=== PATIENT | male | born 1935 | race Caucasian/White ===

== ENCOUNTER 2019-02-17 10:26 | Inpatient (IN) | payer MEDICARE ==
--- NOTE | 2019-02-17 11:48 | PDOC.HHP ---
Hospitalist HPI - History of Present Illness Chest pain History of Present Illness: Mr. Plaza is 84 y/o male with h/o hypertension who initially presented to [place] [facility] with c/o chest pain on 02/11/2019. He was diagnosed with community acquired pnemonia based on clinical findings and imaging. Patient was discharged form the ER with azithromycin and cefpodoxime. He presented back today to the ER from anterior chest pain which he insists to be different from previous chest pain that he experienced. Pain is associated with non productive cough and chills. Pain is non radiating and pleuritic. Patient seems to be agitated and not providing much answers. He endorses being short of breath; however, relates it to "being stuck in one place" He denies syncope, orthopnea or PND. ED Course: In the ER, he was found to have persistent infiltrates and was in Afib, denies any prior history. Patient has been referred for inpatient admission given failed outpatient therapy Hospitalist ROS - Review of Systems Constitutional: reports: chills Eyes: denies: pain, vision change, conjunctivae inflammation, eyelid inflammation, redness, other ENT: denies: ear pain, ear discharge, nose pain, nose discharge, nose congestion , mouth pain, mouth swelling, throat pain, throat swelling, other Respiratory: reports: cough, dry, shortness of breath, SOB with excertion, pleuritic pain Cardiovascular: reports: chest pain. denies: palpitations, orthopnea, paroxysmal noc. dyspnea, edema, light headedness, other Genitourinary: denies: dysuria, frequency, incontinence, hematuria, retention, other Musculoskeletal: denies: neck pain, shoulder pain, arm pain, back pain, hand pain, leg pain, foot pain, other Skin: denies: rash, lesions, david, bruising, other Neurological: denies: weakness, numbness, incoordination, change in speech, confusion, seizures, other All other systems reviewed; all pertinent +/- noted in HPI/Subj Hospitalist History - Past Medical History Source: patient, old records Cardiac: reports: HTN Pulmonary: denies: no pertinent history, angina, asthma, bronchitis, CVA/TIA/ stroke, congestive heart failure, COPD, deep vein thrombosis, emphysema, heart attack, high cholesterol, HIV/AIDS, hypertension, lung disease, pneumonia, previously intubated, pulmonary embolism, Other SALES TRAINING REPRESENTATIVE: denies: no pertinent history, Carpal Tunnel Syndrome, CVA, Dementia, Migraine, Peripheral neuropathy, Seizure, TIA, Vertigo, Other Gastrointestinal: denies: no pertinent history, Constipation, Diverticulosis, GERD, GI bleed, Gastritis, Hemorrhoids, Inflam bowel disease, Irritable bowel disease, Peptic ulcer disease, Other Heme/Onc: denies: no pertinent history, Anemia NOS, B12 deficiency, Cancer, Hemochromatosis, Iron deficiency anemia, Sickle cell disease, Sickle cell trait , Other Hepatobiliary: denies: no pertinent history, Cirrhosis, Cholelithiasis, Hep A/B/ C, Other Musculoskeletal: reports: Osteoarthritis Rheumatologic: denies: no pertinent history, Fibromyalgia, Gout, Rheumatoid arthritis, Vasculitis, Other Infectious Disease: denies: no pertinent history, Bacterial vaginosis, [place], Gonorrhea, HIV, Human papilloma virus, Herpes simplex 1, Herpes simplex 2, Herpes zoster, Other - Past Surgical History Past Surgical History: reports: Total Knee Replacement Other Surgical History: Colon resection with colostomy, now reversed - Family History Family History: reports: hypertension - Exam General Appearance: NAD, awake alert Eye: PERRL, anicteric sclera ENT: dry oral mucosa Neck: supple, symmetric Heart: irregular, murmur present (3/), III/IV Respiratory: no wheezes, rales Gastrointestinal: soft, non-tender Extremities: no cyanosis, no clubbing Skin: normal turgor Neurological: normal sensation to touch, no focal deficits Musculoskeletal: generalized weakness Psychiatric: normal affect, oriented to place, oriented to time Hospitalist Results - Labs Lab results: Laboratory Tests 01/20/19 02/17/19 02/17/19 18:30 08:40 08:45 WBC 14.3 H RBC 4.43 L Hgb 13.4 L MCHC 31.3 L MPV 6.8 L Neutrophils % 76.8 H Lymphocytes % 14.9 L Neutrophils # 11.0 H Sodium 139 Potassium 5.1 BUN 35 H Creatinine 1.65 H Calcium 13.2 H* Alkaline Phosphatase 157 H Globulin 3.8 H Albumin/Globulin Ratio 0.9 L Urine Clarity Turbid A Urine Nitrite 2+ A Urine Urobilinogen Normal Urine WBC Greater than 50 A Urine Bacteria 4+ A - Radiology Interpretation Chest x-ray Status: report reviewed by nv Hospitalist H&P A/P - Plan Plan: Mr. Plaza is 84y/o male pw Chest pain # Chest pain- rule out ACS. Trop elevated at 0.036, will trend. EKG with rate controlled Afib. Risk factors noted. -Aspirin -check lipids -Echocardiography and place on telemetry -Consult transit worker. #Atrial fibrillation- denies prior history. maybe related to acute infection. -Rate is controlled -[id number] score at 2 thus far; initiate full dose lovenox. Defer further AC to transit worker. -Obtain Echocardiography # Community acquired pneumonia- failed outpatient therapy. leukocytosis remains. Not hypoxic, doubt VTE. - will escalate antibiotics to zosyn and vanc pending MRSA screening - duonebs, supplemental oxygen and pulm toileting - blood cultures, urine strep and legionella - lactic acid is unremarkable. -consider repeating cxr for resolution vs CT chest for further investigation #UTI- UA strongly positive. Denies any symptoms. -abx to cover -follow urine culture #Hypercalcemia- related to hypovolemia? Check Ionized ca - IV hydration. trend ca - recheck labs in a.m #GUERO- cannot rule out CKD. multifactorial. Hypercalcemia vs acute infection vs afib. Urine studies to calc FeNa. - IV hydration - avoid nephrotoxins and trend cr #Hypertension- will resume meds once uploaded to APR. BP at 141/82, HR 68. 96% on RA #Chronic bilateral knee pain- mobilizes with wheel chair, risk of DVT/PE. - resume home pain meds DVT ppx- on full dose lovenox GI ppx famotidine. patient is a DNR/DNI, discussed with patient and spouse at bedside.
[2019-02-17] MEDS ORDERED: Ondansetron PF 4 MG/2 ML Vial IVP PRN (13:53)
[2019-02-17] MEDS ORDERED: Sodium Chloride 0.9% 1,000 ML IV SCH (13:53)
[2019-02-17 14:42] LABS: Troponin I 0.014 ng/mL (< 0.028)
[2019-02-17 16:55] LABS: Legionella Urinary Ag Negative (Negative); Strep pneumo Urine Ag NEGATIVE (NEGATIVE)
--- NOTE | 2019-02-17 18:20 | CON ---
DATE OF CONSULTATION: 02/17/2019 Consult encompassed 50 minutes of time, greater than 50% time spent on direct patient care. HISTORY OF PRESENT ILLNESS: Mr. Plaza is an 84-year-old male, who is currently in inpatient observation for workup of atypical chest pain. Symptoms started about 3 days ago. He was seen over in [place], diagnosed with left upper lobe pneumonia, started on azithromycin and Omnicef. At that time, he was having chest pain mainly on the right side, but the infiltrate was in the left upper lobe. He came back today because of persistent pain, which was now on the left side. He denies any cough, fever, chills, or shortness of breath. PAST MEDICAL HISTORY: 1. Hypertension. 2. Osteoarthritis. PAST SURGICAL HISTORY: Total knee replacement. FAMILY MEDICAL HISTORY: Remarkable for hypertension. MEDICATIONS: Prior to admission, denies taking any medications. SOCIAL HISTORY: Quit smoking about 40 years ago. Does not consume alcohol. REVIEW OF SYSTEMS: Twelve-point review of systems is otherwise negative. PHYSICAL EXAMINATION: VITAL SIGNS: Temperature 98.3, pulse 85, respirations 24, O2 saturation 97% on room air, and blood pressure 149/78. GENERAL: The patient is an elderly male, who is awake, alert, and oriented. He has somewhat disheveled appearance. HEENT: Pupils reactive. Sclerae anicteric. Oropharynx clear. NECK: No adenopathy or JVD. CHEST: Palpable pain along the left lateral rib cage. He has no crackles, but has wheezing in both the left upper and right upper lobes. CARDIAC: S1 and S2 regular with a 2/6 holosystolic murmur at the left sternal border. ABDOMEN: Soft, obese, nontender, and nondistended. EXTREMITIES: No clubbing, cyanosis, or edema. NEUROLOGIC: Grossly intact throughout. LABORATORY DATA: Sodium 139, potassium 5.1, chloride 103, CO2 of 25, BUN 35, creatinine 1.6, glucose 102, calcium 13.2, alkaline phosphatase 157. White blood cell count 14.3, hematocrit 42.9, and platelet count 305. Chest x-ray from [place] does show a left upper lobe infiltrate. ASSESSMENT: 1. Left upper lobe infiltrate. 2. Hypercalcemia. 3. Previous smoker. 4. Left-sided pain. PLAN: Needs a CT of the chest. Unfortunately, his creatinine is elevated. I will go ahead and get noncontrast CT for the time being. He will continue hydration for his hypercalcemia. I have increased his IV fluid rate. He is continued on IV antibiotics. I will check an intact parathyroid hormone level. We will follow. Job ID: [id number]
[2019-02-17] MEDS: Sodium Chloride 0.9% 1,000 ML IV SCH (19:05)
--- NOTE | 2019-02-17 20:10 | CON ---
DATE OF CONSULTATION: HISTORY OF PRESENT ILLNESS: The patient is an 84-year-old gentleman, who presented for evaluation of dyspnea. The patient states he has a long history of an irregular heart rhythm and a heart murmur. The patient was in his usual state of health when he started developing increasing dyspnea. He went to a local emergency room and was diagnosed with pneumonia. He has been on antibiotics. The patient returned to the emergency room with shortness of breath. He was noted to be in irregular heart rhythm and admitted for further evaluation. The patient denies having any chest discomfort. The patient denies having any fevers or chills. PAST MEDICAL HISTORY: 1. BPH. 2. Irregular heart rhythm. 3. Insomnia. PAST SURGICAL HISTORY: He has had knee surgery, prostate surgery, and colostomy. SOCIAL HISTORY: Nonsmoker. ALLERGIES: NO KNOWN DRUG ALLERGIES. MEDICATIONS: On admission was; 1. Lisinopril 20 daily. 2. Ambien 10 at bedtime. 3. Hydroxyzine 25 b.i.d. REVIEW OF SYSTEMS: Ten-point system otherwise unremarkable. No history of easy bruising or bleeding or bright red blood per rectum. PHYSICAL EXAMINATION: GENERAL: Obese gentleman, in no acute distress. VITAL SIGNS: Blood pressure 150/90. NECK: No jugular venous distention. LUNGS: Clear to auscultation. HEART: Irregular rate and rhythm with a 3/6 systolic murmur. ABDOMEN: Nondistended. EXTREMITIES: Showed trace edema. VASCULAR: Radial pulses 2+. LABORATORY RESULTS: Sodium 139, potassium 5.1, chloride 103, bicarbonate 25, BUN 35, creatinine 1.6, and calcium was 13.2. Troponin was 0.036 and BNP 67. White blood cell count 14.3, hemoglobin 13.4, hematocrit 42.9, and platelets 305. EKG revealed atrial fibrillation with a slow ventricular response, left anterior fascicular block. Chest x-ray revealed a right upper lung mass/infiltrate. IMPRESSION: 1. Right upper lung mass/infiltrate. 2. Hypercalcemia. 3. Atrial fibrillation, possibly permanent. 4. Renal insufficiency. 5. Benign prostatic hyperplasia. 6. Aortic stenosis. PLAN: This gentleman presents with a right upper lung mass and hypercalcemia, would consult Pulmonary. The patient has atrial fibrillation, rate is well controlled. The patient will need to be on chronic anticoagulation. We will follow this patient with you through his hospitalization. Job ID: [id number]
[2019-02-17] MEDS ORDERED: Enoxaparin Sodium 100 MG/ML SYRINGE SC SCH (21:00)
--- NOTE | 2019-02-17 21:14 | CT ---
NONCONTRAST CT THORAX: History: Left upper lobe mass versus infiltrate. Reported history of pneumonia. FINDINGS: There is a mass like area of consolidation seen in the left upper lobe. This could be related to a ve ry dense area of consolidation, findings are worrisome for neoplastic process. There is narrowing of the left upper lobe bronchus. There is nodularity seen within the left upper lobe as well as intersti tial thickening. These findings could be related to post obstructive type changes versus lymphangitic spread of tumor. The right lung is clear. Mild emphysematous changes are present which are predominately present in th e right lower lobe. There are enlarged mediastinal lymph nodes with larger paratracheal on the right measuring 1.5 cm in short axis dimension. A subcoronal lymph node is present measuring 1.5 in short axis dimension. A few prevascular space lymph nodes are identified. There is an increased number of lymph nodes seen in the axillary regions bilaterally. Largest lymph n ode in the left axilla measures 1.9 cm with largest lymph node in the right axilla measuring 1.4 cm. Vascular calcifications are seen in the coronary arteries and involving the thoracic aorta. The thyroid gland has a normal nonenhanced CT appearance. The visualized liver demonstrates diminished attenuation relative to the spleen suggesting diffuse fa tty infiltration. Splenic and hepatic granulomata are identified. Multilevel degenerative changes are seen throughout the visualized cervical spine as well as involvin g the thoracic spine. There are calcifications at anterior and longitudinal ligament at multiple leve ls. No suspicious lytic or sclerotic osseous lesions are identified. IMPRESSION: 1. Mass like density within the left upper lobe measuring 5 cm craniocaudal x 7.3 cm AP x 6.3 cm liao sverse. While this could be related to a dense area of consolidation secondary to pneumonia, findings are worrisome for a mass in this region related to neoplastic process. 2. Interstitial thickening with nodularity in the remainder of the left upper lobe which could be rel ated to either post obstructive pneumonitis or lymphangitic spread of tumor. 3. Mediastinal as well as axillary lymphadenopathy. 4. Fatty infiltration of the liver. POS: [facility]
[2019-02-17] MEDS: Enoxaparin Sodium 120 MG/0.8 ML SYRINGE SC SCH (21:15)
[2019-02-17] MEDS: Famotidine 20 MG TAB PO SCH (21:15)
[2019-02-17] MEDS: Piperacillin/Tazobactam 3.375 GM in Sodium Chloride 0.9% 100 ML IVPB SCH (21:15)
[2019-02-17] MEDS ORDERED: HYDROcodone/Acetaminophen 5/325 mg Tablet PO PRN (22:24)
[2019-02-17] MEDS: Zolpidem Tartrate 5 MG TAB PO SCH ×2 (23:48→23:52)
[2019-02-18] MEDS: Piperacillin/Tazobactam 3.375 GM in Sodium Chloride 0.9% 100 ML IVPB SCH ×4 (02:42→20:55)
[2019-02-18 04:54] LABS: #Basophils 0.1 thou/uL (0.0-0.2); #Lymphocytes 1.9 thou/uL (1.20-3.40); #Monocytes 1.2 thou/uL (0.11-0.59); #Neutrophils 9.4 thou/uL (1.40-6.50); %Basophils 0.4 % (0.0-1.0); %Eosinophils 0.1 % (0.0-10.0); %Lymphocytes 15.2 % (21.0-51.0); %Monocytes 9.5 % (0.0-10.0); %Neutrophils 74.8 % (42.0-75.0); Hemoglobin 11.7 g/dL (14.0-18.0); Mean Corpuscular Hemoglobin 31.7 pg (27.0-31.0); Mean Platelet Volume 7.4 fL (7.4-10.4); Platelet Count 244 thou/uL (130-400); RBC Distribution Width 12.2 % (11.5-14.5); Red Blood Cell (RBC) Count 3.69 mill/uL (4.70-6.10); White Blood Cell (WBC) Count 12.6 thou/uL (4.8-10.8)
[2019-02-18 05:17] LABS: ALT (SGPT) 21 U/L (8-55); AST (SGOT) 32 U/L (5-34); Alkaline Phosphatase 144 U/L (40-110); Anion Gap 11 mmol/L (10-20); BUN (Urea Nitrogen) 30 mg/dL (8.4-25.7); Bilirubin, Total 0.8 mg/dL (0.2-1.2); Calc. Creatinine Clearance 52 mL/min (70-130); Calcium 11.4 mg/dL (7.8-10.44); Carbon Dioxide 23 mmol/L (23-31); Cardiac Risk 3.2 (Less than 4.5); Chloride 107 mmol/L (98-107); Cholesterol 95 mg/dl (< 200 Desired); Estimated GFR-MDRD 41; Globulin 3.1 g/dL (2.4-3.5); Glucose 81 mg/dL (83-110); HDL Cholesterol 30 mg/dL (>60 Neg Risk); LDL Cholesterol, Calculated 46 mg/dL; Potassium 4.7 mmol/L (3.5-5.1); Protein, Total 6.1 g/dL (5.8-8.1); Sodium 136 mmol/L (136-145); Triglycerides 94 mg/dL (Less than 150)
[2019-02-18] MEDS: Sodium Chloride 0.9% 1,000 ML IV SCH ×3 (08:40→22:22)
[2019-02-18] MEDS: Aspirin 81 mg Enteric Coated Tablet PO SCH (10:11)
[2019-02-18] MEDS: Enoxaparin Sodium 120 MG/0.8 ML SYRINGE SC SCH ×2 (10:11→20:55)
[2019-02-18] MEDS: Famotidine 20 MG TAB PO SCH ×2 (10:12→20:54)
[2019-02-18] MEDS: Vancomycin 1.5 GRAM/300 ML BAG 1.5 GM in Premix Bag 1 BAG IVPB SCH ×2 (13:15→21:07)
[2019-02-18] MEDS ORDERED: Zoledronic Acid 4 MG in Sodium Chloride 0.9% 100 ML IVPB SCH (13:45)
--- NOTE | 2019-02-18 13:49 | PDOC.HOSPP ---
- Subjective Encounter Date: 02/18/19 Encounter Time: 10:30 Subjective: pt up in bed no complains - Objective Vital Signs & Weight: Vital Signs (12 hours) Temp Pulse Resp BP Pulse Ox 02/18/19 11:25 98.1 F 65 20 136/66 97 02/18/19 08:35 97.5 F L 90 20 156/96 H 95 02/18/19 07:13 98.4 F 76 18 146/68 H 95 02/18/19 02:45 98.4 F 68 22 H 129/60 95 Weight Admit Weight 237 lb 6.4 oz Weight 240 lb 1.334 oz I&O: 02/17/19 02/18/19 02/19/19 06:59 06:59 06:59 Intake Total 1064 Output Total 475 Balance 589 Result Diagrams: 02/18/19 04:28 02/18/19 04:28 Hospitalist ROS - Review of Systems Respiratory: denies: cough, dry, shortness of breath, hemoptysis, SOB with excertion, pleuritic pain, sputum, wheezing, other Cardiovascular: denies: chest pain, palpitations, orthopnea, paroxysmal noc. dyspnea, edema, light headedness, other Gastrointestinal: denies: nausea, vomiting, abdominal pain, diarrhea, constipation, melena, hematochezia, other - Medication Medications: Active Medications Generic Name Dose Route Start Last Admin Trade Name Freq PRN Reason Stop Dose Admin Aspirin 81 mg 02/18/19 09:00 02/18/19 10:11 Ecotrin PO 81 mg DAILY MAGALY Administration Enoxaparin Sodium 110 mg 02/17/19 21:00 02/18/19 10:11 Lovenox SC 110 mg 0900,2100 MAGALY Administration Famotidine 20 mg 02/17/19 21:00 02/18/19 10:12 Pepcid PO 20 mg BID MAGALY Administration Piperacillin Sod/Tazobactam 100 mls @ 200 mls/hr 02/17/19 20:00 02/18/19 11: 23 Sod 3.375 gm/ Sodium Chloride IVPB 100 mls Q6H MAGALY Administration Sodium Chloride 1,000 mls @ 100 mls/hr 02/17/19 17:20 02/18/19 08:40 Normal Saline 0.9% IV 1,000 mls .Q10H MAGALY Administration Vancomycin HCl 1.5 gm/ Device 300 mls @ 200 mls/hr 02/18/19 09:00 02/18/19 13 :15 IVPB 300 mls Q12HR MAAGLY Administration Zolpidem Tartrate 10 mg 02/18/19 21:00 02/17/19 23:48 Ambien PO 10 mg HS MAGALY Administration Zolpidem Tartrate 10 mg 02/17/19 23:45 02/17/19 23:52 Ambien PO 02/18/19 23:59 10 mg NOW MAGALY Administration - Exam Neck: negative: supple, symmetric, no JVD, no thyromegaly, no lymphadenopathy, no carotid bruit, JVD Heart: negative: RRR, no murmur, no gallops, no rubs, normal peripheral pulses, irregular, diminshed peripheral pulses, murmur present, II/IV, III/IV Respiratory: negative: CTAB, no wheezes, no rales, no ronchi, normal chest expansion, no tachypnea, normal percussion, rales, rhonchi, tachypneic, wheezes Hosp A/P (1) Pneumonia Code(s): J18.9 - PNEUMONIA, UNSPECIFIED ORGANISM Status: Acute (2) Afib Code(s): I48.91 - UNSPECIFIED ATRIAL FIBRILLATION Status: Acute (3) Hypercalcemia Code(s): E83.52 - HYPERCALCEMIA Status: Acute - Plan pt's pTh is normal. will check Multiple myeloma work up. vit D is pending. He will need a repeat ct chest since there is a high possibility of him having a post obst pneumonia. He denies any weight loss. He does not eat much due to the fact that he has no olfactory or gustatory. Pt states that he had an accident many years ago and since then has had this problem. will change his AC to oral. will also check a mag. will give him zoledronic acid. will continue iv abx.
--- NOTE | 2019-02-18 14:14 | PRG ---
DATE OF SERVICE: 02/18/2019 SUBJECTIVE: Mr. Plaza is in no distress. He was transferred to telemetry from the Oncology unit. OBJECTIVE: LUNGS: Clear anteriorly. HEART: Regular rhythm. ABDOMEN: Soft. LABORATORY DATA: White count 12.6, hemoglobin 11.7, platelets 244. Electrolytes are normal. BUN 30, creatinine 1.62, it is 1.73 on the 11 of February. I reviewed his CT. This looks more like a mass to me, especially given that he presented with significant hypercalcemia. IMPRESSION: 1. Lung mass. 2. Hypercalcemia, most likely related to malignancy. We will continue to follow. Job ID: [id number]
[2019-02-18] MEDS: hydrOXYzine 25 MG TAB PO SCH (16:44)
[2019-02-18 20:44] LABS: Vancomycin, Trough 31.1 ug/mL
[2019-02-18] MEDS: Zolpidem Tartrate 5 MG TAB PO SCH (20:55)
[2019-02-19 01:24] LABS: Vancomycin, Random 25.1 ug/mL (See Comment)
[2019-02-19] MEDS: Piperacillin/Tazobactam 3.375 GM in Sodium Chloride 0.9% 100 ML IVPB SCH ×4 (01:57→21:29)
[2019-02-19] MEDS ORDERED: Vancomycin 1.5 GRAM/300 ML BAG 1.5 GM in Premix Bag 1 BAG IVPB SCH (02:00)
[2019-02-19 05:09] LABS: Anion Gap 11 mmol/L (10-20); BUN (Urea Nitrogen) 26 mg/dL (8.4-25.7); Calc. Creatinine Clearance 52 mL/min (70-130); Calcium 10.9 mg/dL (7.8-10.44); Carbon Dioxide 22 mmol/L (23-31); Chloride 109 mmol/L (98-107); Estimated GFR-MDRD 41; Glucose 64 mg/dL (83-110); Potassium 4.4 mmol/L (3.5-5.1); Sodium 138 mmol/L (136-145)
[2019-02-19] MEDS ORDERED: Sodium Chloride 0.9% 500 ML IV SCH (07:00)
[2019-02-19] MEDS: Sodium Chloride 0.9% 1,000 ML IV SCH ×2 (08:07→20:05)
[2019-02-19] MEDS: Vancomycin HCl 1 GM in Premix Bag 1 BAG IVPB SCH ×2 (08:49→20:06)
[2019-02-19] MEDS: Enoxaparin Sodium 120 MG/0.8 ML SYRINGE SC SCH ×2 (08:50→20:05)
[2019-02-19] MEDS: Lisinopril 20 MG TAB PO SCH (08:50)
[2019-02-19] MEDS: Aspirin 81 mg Enteric Coated Tablet PO SCH (08:50)
[2019-02-19] MEDS: Famotidine 20 MG TAB PO SCH ×2 (08:50→20:06)
[2019-02-19] MEDS: hydrOXYzine 25 MG TAB PO SCH ×2 (08:50→16:45)
--- NOTE | 2019-02-19 13:12 | PRG ---
DATE OF SERVICE: 02/19/2019 SUBJECTIVE: The patient is about the same. He had no acute complaints. I did have the opportunity to review his CT scan. He does have a fairly substantial left upper lobe lung mass. OBJECTIVE: VITAL SIGNS: His temperature is 97.8, pulse 60, respirations 18, O2 saturation 96% on room air, and blood pressure 175/80. HEENT: Unremarkable. NECK: No adenopathy or JVD. LUNGS: Diminished breath sounds in left upper lobe. Right side clear. CARDIAC: S1 and S2, regular. ABDOMEN: Soft. EXTREMITIES: No edema. LABORATORY DATA: Sodium 130, potassium 4.4, chloride 109, CO2 of 22, BUN 26, creatinine 1.6, calcium level 10.9. White blood cell count 12.6, hematocrit 36.5, and platelet count 244. ASSESSMENT: 1. 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 2. Hypercalcemia due to malignancy. PLAN: The patient needs a tissue diagnosis for confirmation. I discussed different approaches including bronchoscopy and CT needle biopsy. I think in this case, I would prefer to do bronchoscopy given the location of the tumor rather medially in the left upper lobe. Hopefully, there will be an endobronchial component. I will try to get this accomplished on Sunday. Job ID: [id number]
--- NOTE | 2019-02-19 14:12 | PDOC.HOSPP ---
- Subjective Encounter Date: 02/19/19 Encounter Time: 08:00 Subjective: pt up in bed no - Objective Vital Signs & Weight: Vital Signs (12 hours) Temp Pulse Resp BP BP Pulse Ox 02/19/19 12:37 97.8 F 60 18 175/80 H 96 02/19/19 08:49 96 02/19/19 08:00 98.3 F 62 18 149/70 H 96 02/19/19 04:00 98.8 F 62 18 157/68 H 94 L Weight Admit Weight 237 lb 6.4 oz Weight 237 lb 11.2 oz I&O: 02/18/19 02/19/19 02/20/19 06:59 06:59 06:59 Intake Total 1064 1920 Output Total 475 1125 Balance 589 795 Result Diagrams: 02/18/19 04:28 02/19/19 04:22 Hospitalist ROS - Review of Systems Cardiovascular: denies: chest pain, palpitations, orthopnea, paroxysmal noc. dyspnea, edema, light headedness, other Gastrointestinal: denies: nausea, vomiting, abdominal pain, diarrhea, constipation, melena, hematochezia, other Genitourinary: denies: dysuria, frequency, incontinence, hematuria, retention, other - Medication Medications: Active Medications Generic Name Dose Route Start Last Admin Trade Name Freq PRN Reason Stop Dose Admin Aspirin 81 mg 02/18/19 09:00 02/19/19 08:50 Ecotrin PO 81 mg DAILY MAGALY Administration Enoxaparin Sodium 110 mg 02/17/19 21:00 02/19/19 08:50 Lovenox SC 110 mg 0900,2100 MAGALY Administration Famotidine 20 mg 02/17/19 21:00 02/19/19 08:50 Pepcid PO 20 mg BID MAGALY Administration Hydroxyzine HCl 25 mg 02/18/19 17:00 02/19/19 08:50 Atarax PO 25 mg BID-WM MAGALY Administration Piperacillin Sod/Tazobactam 100 mls @ 200 mls/hr 02/17/19 20:00 02/19/19 08: 49 Sod 3.375 gm/ Sodium Chloride IVPB 100 mls Q6H MAGALY Administration Sodium Chloride 1,000 mls @ 100 mls/hr 02/17/19 17:20 02/19/19 08:07 Normal Saline 0.9% IV 1,000 mls .Q10H MAGALY Administration Vancomycin HCl 1 gm/ Device 200 mls @ 200 mls/hr 02/19/19 09:00 02/19/19 08: 49 IVPB 200 mls Q12HR MAGALY Administration Lisinopril 20 mg 02/19/19 09:00 02/19/19 08:50 Zestril PO 20 mg QAM MAGALY Administration Zolpidem Tartrate 10 mg 02/18/19 21:00 02/17/19 23:48 Ambien PO 10 mg HS MAGALY Administration - Exam Heart: negative: RRR, no murmur, no gallops, no rubs, normal peripheral pulses, irregular, diminshed peripheral pulses, murmur present, II/IV, III/IV Respiratory: wheezes Gastrointestinal: negative: soft, non-tender, non-distended, normal bowel sounds , no palpable masses, no hepatomegaly, no splenomegaly, no bruit, no guarding, no rigidity, tender to palpation, distended, diminished bowl sounds, voluntary guarding Extremities: negative: no cyanosis, no clubbing, no edema, 1+ LE edema, 2+ LE edema, clubbing Hosp A/P (1) Pneumonia Code(s): J18.9 - PNEUMONIA, UNSPECIFIED ORGANISM Status: Acute (2) Afib Code(s): I48.91 - UNSPECIFIED ATRIAL FIBRILLATION Status: Acute (3) Hypercalcemia Code(s): E83.52 - HYPERCALCEMIA Status: Acute (4) Lung malignancy Code(s): C34.90 - MALIGNANT NEOPLASM OF UNSP PART OF UNSP BRONCHUS OR LUNG Status: Acute - Plan pt's pTh is normal. will check Multiple myeloma work up. vit D is pending. He will need a repeat ct chest since there is a high possibility of him having a post obst pneumonia. He denies any weight loss. He does not eat much due to the fact that he has no olfactory or gustatory. Pt states that he had an accident many years ago and since then has had this problem. will change his AC to oral. will also check a mag. will give him zoledronic acid. will continue iv abx. 02/20 pt to have a bronchoscopy on sunday. will give him one dose of iv lasix. His calcium has improved a bit. will get PT to see pt. pt at baseline does not walk much.
[2019-02-19] MEDS ORDERED: Furosemide 40 MG/4 ML VIAL SLOW IVP SCH (14:15)
[2019-02-19] MEDS ORDERED: Ipratropium Bromide 2.5 ml Neb NEB SCH (14:15)
[2019-02-19] MEDS: HYDROcodone/Acetaminophen 5/325 mg Tablet PO PRN (17:25)
[2019-02-19] MEDS: Zolpidem Tartrate 5 MG TAB PO SCH (20:06)
[2019-02-20] MEDS: Piperacillin/Tazobactam 3.375 GM in Sodium Chloride 0.9% 100 ML IVPB SCH ×4 (02:56→20:49)
[2019-02-20 04:43] LABS: Hemoglobin 11.6 g/dL (14.0-18.0); Platelet Count 230 thou/uL (130-400)
[2019-02-20] MEDS: Vancomycin HCl 1 GM in Premix Bag 1 BAG IVPB SCH ×2 (08:21→21:00)
[2019-02-20] MEDS: Lisinopril 20 MG TAB PO SCH (08:22)
[2019-02-20] MEDS: Famotidine 20 MG TAB PO SCH ×2 (08:22→20:49)
[2019-02-20] MEDS: Enoxaparin Sodium 120 MG/0.8 ML SYRINGE SC SCH ×2 (08:22→20:50)
[2019-02-20] MEDS: Aspirin 81 mg Enteric Coated Tablet PO SCH (08:22)
[2019-02-20] MEDS: hydrOXYzine 25 MG TAB PO SCH ×2 (08:22→17:58)
[2019-02-20] MEDS: Sodium Chloride 0.9% 1,000 ML IV SCH ×3 (08:32→23:23)
--- NOTE | 2019-02-20 11:28 | PDOC.HOSPP ---
- Subjective Encounter Date: 02/20/19 Encounter Time: 15:30 Subjective: No further chest pain. No shortness of breath. No events overnight. - Objective Vital Signs & Weight: Vital Signs (12 hours) Temp Pulse Resp BP BP Pulse Ox 02/20/19 09:50 172/75 H 02/20/19 07:28 97.7 F 61 20 164/79 H 96 02/20/19 03:00 98.3 F 56 L 18 135/70 96 Weight Admit Weight 237 lb 6.4 oz Weight 237 lb 11.2 oz I&O: 02/19/19 02/20/19 02/21/19 06:59 06:59 06:59 Intake Total 1920 2780 Output Total 1125 400 Balance 795 2380 Result Diagrams: 02/20/19 04:25 02/20/19 04:25 Hospitalist ROS - Review of Systems Constitutional: denies: fever, chills Respiratory: denies: cough, shortness of breath Cardiovascular: denies: chest pain, palpitations, orthopnea Gastrointestinal: denies: nausea, vomiting, abdominal pain - Medication Medications: Active Medications Generic Name Dose Route Start Last Admin Trade Name Freq PRN Reason Stop Dose Admin Hydrocodone Bitart/Acetaminophen 1 tab 02/17/19 13:53 02/19/19 17:25 [place] 5/325 PO 1 tab Q4H PRN Administration Moderate Pain (4-6) Aspirin 81 mg 02/18/19 09:00 02/20/19 08:22 Ecotrin PO 81 mg DAILY MAGALY Administration Enoxaparin Sodium 110 mg 02/17/19 21:00 02/20/19 08:22 Lovenox SC 110 mg 0900,2100 MAGALY Administration Famotidine 20 mg 02/17/19 21:00 02/20/19 08:22 Pepcid PO 20 mg BID MAGALY Administration Hydroxyzine HCl 25 mg 02/18/19 17:00 02/20/19 08:22 Atarax PO 25 mg BID-WM MAGALY Administration Piperacillin Sod/Tazobactam 100 mls @ 200 mls/hr 02/17/19 20:00 02/20/19 08: 21 Sod 3.375 gm/ Sodium Chloride IVPB 100 mls Q6H MAGALY Administration Sodium Chloride 1,000 mls @ 100 mls/hr 02/17/19 17:20 02/20/19 11:03 Normal Saline 0.9% IV 1,000 mls .Q10H MAGALY Administration Vancomycin HCl 1 gm/ Device 200 mls @ 200 mls/hr 02/19/19 09:00 02/20/19 08: 21 IVPB 200 mls Q12HR MAGALY Administration Lisinopril 20 mg 02/19/19 09:00 02/20/19 08:22 Zestril PO 20 mg QAM MAGALY Administration Zolpidem Tartrate 10 mg 02/18/19 21:00 02/19/19 20:06 Ambien PO 10 mg HS MAGALY Administration - Exam General Appearance: NAD Eye: anicteric sclera ENT: moist mucosa Heart: RRR, no murmur, no gallops, no rubs Respiratory: CTAB, no wheezes Gastrointestinal: soft, non-tender, non-distended, normal bowel sounds Psychiatric: normal affect, normal behavior, A&O x 3 Hosp A/P (1) Lung malignancy Code(s): C34.90 - MALIGNANT NEOPLASM OF UNSP PART OF UNSP BRONCHUS OR LUNG Status: Acute (2) Hypercalcemia Code(s): E83.52 - HYPERCALCEMIA Status: Acute (3) Pneumonia Code(s): J18.9 - PNEUMONIA, UNSPECIFIED ORGANISM Status: Acute (4) Afib Code(s): I48.91 - UNSPECIFIED ATRIAL FIBRILLATION Status: Acute - Plan continue antibiotics, PT/OT, respiratory therapy On Zosyn and Vancomycin since 02/17/2019 Full dose Lovenox Plan for bronchoscopy tomorrow for biopsy of mass
[2019-02-20] MEDS: HYDROcodone/Acetaminophen 5/325 mg Tablet PO PRN (13:00)
[2019-02-20 15:44] VITALS: BMI 32.2
--- NOTE | 2019-02-20 17:56 | PRG ---
DATE OF SERVICE: 02/20/2019 SUBJECTIVE: Bola has no complaints. He is tentatively on the schedule for bronchoscopy in the morning. OBJECTIVE: VITAL SIGNS: He is afebrile. Heart rate is in the 70s, respiratory rates in the teens, oximetry is 98% on room air, blood pressure is 159/98. LUNGS: Clear. IMPRESSION AND PLAN: Lung mass. Bronchoscopy in the morning. Job ID: [id number]
[2019-02-20] MEDS: Zolpidem Tartrate 5 MG TAB PO SCH (20:49)
[2019-02-20 20:52] LABS: Vancomycin, Trough 35.1 ug/mL
[2019-02-21] MEDS: Piperacillin/Tazobactam 3.375 GM in Sodium Chloride 0.9% 100 ML IVPB SCH ×3 (02:00→13:18)
[2019-02-21] MEDS ORDERED: Fentanyl 100 MCG/2 ML VIAL ONE (07:14)
[2019-02-21] MEDS ORDERED: Ketamine 50 MG/ML (10ML VIAL) ONE (07:49)
--- NOTE | 2019-02-21 09:13 | OP ---
DATE OF PROCEDURE: 02/21/2019 PROCEDURE PERFORMED: Fiberoptic bronchoscopy. PREOPERATIVE DIAGNOSIS: Left upper lobe lung mass. POSTOPERATIVE DIAGNOSIS: Left upper lobe lung mass. ANESTHESIA: General endotracheal. DESCRIPTION OF PROCEDURE: Informed consent was obtained prior to the procedure. The patient understood the risks involved including bleeding, infection, external lung puncture and agreed to proceed. The patient was brought to the endoscopy suite and placed on cardiopulmonary monitoring. He was intubated with a nasoendotracheal tube by Anesthesia and placed on mechanical ventilation. A 2.4 Olympus bronchoscope was placed through the patient's endotracheal tube. The right upper lobe, right middle lobe, right lower lobe, and right mainstem bronchus were normal in appearance. The left mainstem bronchus and left lower lobe were normal in appearance. The left upper lobe was normal in appearance up to the apical posterior segment, which was stenotic. A series of brushes and transbronchial biopsies were done in the stenotic segment and the apical posterior segment of left upper lobe. Some washings were obtained from that area. This was done under fluoroscopic guidance. The scope was then removed. The patient was extubated. He tolerated the procedure well. Job ID: [id number]
[2019-02-21] MEDS ORDERED: Promethazine HCl 25 MG/ML VIAL SLOW IVP PRN (09:26)
[2019-02-21] MEDS ORDERED: Ondansetron HCl/PF 4 MG/2 ML Vial IVP PRN (09:26)
[2019-02-21] MEDS ORDERED: Morphine Sulfate 2 MG/ML SYRINGE SLOW IVP PRN (09:26)
[2019-02-21] MEDS ORDERED: Promethazine HCl 25 MG/ML VIAL IM PRN (09:26)
[2019-02-21] MEDS: Aspirin 81 mg Enteric Coated Tablet PO SCH (09:49)
[2019-02-21] MEDS: Enoxaparin Sodium 120 MG/0.8 ML SYRINGE SC SCH (09:49)
[2019-02-21] MEDS: hydrOXYzine 25 MG TAB PO SCH ×2 (09:49→16:05)
[2019-02-21] MEDS: Famotidine 20 MG TAB PO SCH (09:49)
[2019-02-21] MEDS: Lisinopril 20 MG TAB PO SCH (09:49)
--- NOTE | 2019-02-21 10:27 | PDOC.HOSPP ---
- Subjective Encounter Date: 02/21/19 Encounter Time: 13:30 Subjective: Patient without complaint. Barely got up to standing with PT yesterday. States he has a walker and wheelchair at home along with help and demanding to go home today. - Objective Vital Signs & Weight: Vital Signs (12 hours) Temp Pulse Resp BP Pulse Ox 02/21/19 03:10 98.5 F 65 22 H 151/76 H 96 Weight Admit Weight 237 lb 6.4 oz Weight 239 lb I&O: 02/20/19 02/21/19 02/22/19 06:59 06:59 06:59 Intake Total 2780 2830 Output Total 400 Balance 2380 2830 Result Diagrams: 02/20/19 04:25 02/20/19 04:25 Hospitalist ROS - Review of Systems Constitutional: denies: fever, chills Respiratory: denies: cough, dry, shortness of breath Cardiovascular: denies: chest pain, palpitations Gastrointestinal: denies: nausea, vomiting, abdominal pain - Medication Medications: Active Medications Generic Name Dose Route Start Last Admin Trade Name Freq PRN Reason Stop Dose Admin Hydrocodone Bitart/Acetaminophen 1 tab 02/17/19 13:53 02/20/19 13:00 [place] 5/325 PO 1 tab Q4H PRN Administration Moderate Pain (4-6) Aspirin 81 mg 02/18/19 09:00 02/21/19 09:49 Ecotrin PO 81 mg DAILY MAGALY Administration Enoxaparin Sodium 110 mg 02/17/19 21:00 02/21/19 09:49 Lovenox SC Not Given 0900,2100 MAGALY Famotidine 20 mg 02/17/19 21:00 02/21/19 09:49 Pepcid PO 20 mg BID MAGALY Administration Hydroxyzine HCl 25 mg 02/18/19 17:00 02/21/19 09:49 Atarax PO 25 mg BID-WM MAGALY Administration Piperacillin Sod/Tazobactam 100 mls @ 200 mls/hr 02/17/19 20:00 02/21/19 09: 53 Sod 3.375 gm/ Sodium Chloride IVPB 100 mls Q6H MAGALY Administration Sodium Chloride 1,000 mls @ 100 mls/hr 02/17/19 17:20 02/20/19 23:23 Normal Saline 0.9% IV 1,000 mls .Q10H MAGALY Administration Lisinopril 20 mg 02/19/19 09:00 02/21/19 09:49 Zestril PO 20 mg QAM MAGALY Administration Zolpidem Tartrate 10 mg 02/18/19 21:00 02/20/19 20:49 Ambien PO 10 mg HS MAGALY Administration - Exam General Appearance: NAD, awake alert General - other findings: obese Eye: anicteric sclera ENT: moist mucosa Heart: no murmur, no gallops, no rubs, irregular Respiratory: CTAB, no wheezes, no rales, no ronchi Gastrointestinal: soft, non-tender, non-distended, normal bowel sounds Gastrointestinal - other findings: obese Extremities: no edema Psychiatric: normal affect, normal behavior, A&O x 3 Hosp A/P (1) Lung malignancy Code(s): C34.90 - MALIGNANT NEOPLASM OF UNSP PART OF UNSP BRONCHUS OR LUNG Status: Acute (2) Hypercalcemia Code(s): E83.52 - HYPERCALCEMIA Status: Acute (3) Pneumonia Code(s): J18.9 - PNEUMONIA, UNSPECIFIED ORGANISM Status: Acute (4) Afib Code(s): I48.91 - UNSPECIFIED ATRIAL FIBRILLATION Status: Acute - Plan DVT proph w/lovenox On Zosyn and Vancomycin since 02/17/2019 Full dose Lovenox- transition to Eliquis 2.5mg BID per Dr. Friend. Bronchoscopy with biopsies done this morning Patient cleared to discharge medically by pulm and cards, patient not able to ambulate at all He is demanding to go home and states he will do fine there with the help they have, with his wheelchair. Waiting for PT to see again today.
[2019-02-21] MEDS: Sodium Chloride 0.9% 1,000 ML IV SCH (11:58)
[2019-02-21 14:09] LABS: IgA - Total IgA (Sendout) 491 mg/dL (61-437); Immunoglobulin - G (Sendout) 1003 mg/dL (700-1600); Immunoglobulin - M (Sendout) 46 mg/dL (15-143)
[2019-02-21 15:35] VITALS: TEMP 98
[2019-02-21 15:49] VITALS: BP 148/73
[2019-02-21 16:09] LABS: A/G Ratio 0.9 (0.7-1.7); Albumin 2.7 g/dL (2.9-4.4); Alpha 1 0.2 g/dL (0.0-0.4); Alpha 2 0.9 g/dL (0.4-1.0); Gamma 0.8 g/dL (0.4-1.8); Globulin, Total 2.9 g/dL (2.2-3.9); M-Spike Not Observed g/dL (Not Observed)
[2019-02-21 16:09] LABS: Albumin-Ur 10.9 % (.); Alpha 1 - Ur 9.3 % (.); Alpha 2 - Ur 17.9 % (.); Beta-Ur 17.1 % (.); Gamma-Ur 44.8 % (.); M-Spike,% Not Observed % (Not Observed); Protein, Urine 21.6 mg/dL (Not Estab.)
[2019-02-21] MEDS ORDERED: Vancomycin HCl 1.25 GM in Sodium Chloride 0.9% 250 ML 250 ML IVPB SCH (21:00)
[2019-02-21] MEDS ORDERED: Apixaban 2.5 MG TAB PO SCH (21:00)
[2019-02-22 03:07] LABS: Kappa/Lambda Ratio 12.82 (2.04-10.37)
--- NOTE | 2019-02-23 11:03 | DIS ---
DATE OF ADMISSION: 02/17/2019 DATE OF DISCHARGE: 02/21/2019 PRIMARY CARE PHYSICIAN: Toy Singh MD. REASON FOR ADMISSION: Chest pain with new onset atrial fibrillation and possible community-acquired pneumonia. DISCHARGE DIAGNOSES: 1. Lung malignancy. 2. Postobstructive pneumonia. 3. Hypercalcemia secondary to #1. 4. New onset atrial fibrillation. 5. Chronic renal failure, stable. PROCEDURES: 1. Noncontrast CT of the chest and thorax showing a masslike density within the left upper lobe measuring 5 cm x 7 cm x 6 cm along with an adjacent postobstructive pneumonitis. 2. Fiberoptic bronchoscopy with brushings and transbronchial biopsies. CONSULTATIONS: 1. Pulmonology, Uche Santos. 2. Cardiology, Dr. Friend. SUMMARY OF HOSPITAL COURSE: This is an 84-year-old male with history of hypertension and osteoarthritis. He presented after recent diagnosis of community-acquired pneumonia, failing outpatient treatment with antibiotics, came into the ER with anterior chest pain along with shortness of breath. The patient had a CT scan, which showed the above findings. He was put on antibiotics, Zosyn and vancomycin. He also was noted to be in atrial fibrillation without any significant tachycardia, this is a new diagnosis. Dr. Ivey and Dr. Friend were consulted. The patient was anticoagulated during his hospitalization with Lovenox. This was switched to Eliquis at discharge. Dr. Ivey did take the patient back for bronchoscopy and did some washings and biopsy, is trying to identify the tumor in his chest. On the day of discharge, he was breathing well on room air and was anxious to get home. He was quite debilitated and weak, was not able to stand without assistance. However, he states that he has a rolling walker and a wheelchair at home, which he usually uses for mobility. He also has some assistance from family members and an aide who helps out of the house, and he is requesting to go home and not to go to a retirement facility. He already has home health with physical therapy set up prior to coming in here. DISCHARGE MANAGEMENT: Discharged to home with his previous home health. ACTIVITY: As tolerated. DIET: Healthy heart, low-sodium diet. THERAPY: Occupational and physical therapy. FOLLOWUP: Follow up with Dr. Ivey in [address] Singh in 7 days. DISCHARGE MEDICATIONS: 1. Eliquis 2.5 mg twice a day, 60 tablets dispensed. 2. Aspirin 81 mg daily, 30 tablets dispensed. 3. Hydroxyzine twice a day as needed for itching. 4. Lisinopril 20 mg daily. 5. Ambien 10 mg at night. 6. Hydrocodone/acetaminophen as needed for pain. TIME SPENT: Arranging the details of this discharge took 35 minutes. Job ID: [id number]
== END 2019-02-21 19:00 | disposition home health service (06) | DRG 166 ==
LOC: ERS 10:26 → 2SW 13:16 → OBSVTOIN 18:19 → 2NO 02-18 09:21
PROVIDERS: ADMIT Hospitalist; ATTEND Hospitalist
PROC: 0BBG8ZX Excision of Left Upper Lung Lobe, Via Natural or Artificial Opening Endoscopic, Diagnostic (ICD-10-PCS; principal; 2019-02-21)
PROC: 0BD88ZX Extraction of Left Upper Lobe Bronchus, Via Natural or Artificial Opening Endoscopic, Diagnostic (ICD-10-PCS; 2019-02-21)
PROC: 0BDG8ZX Extraction of Left Upper Lung Lobe, Via Natural or Artificial Opening Endoscopic, Diagnostic (ICD-10-PCS; 2019-02-21)
DX: C34.12 Malignant neoplasm of upper lobe, left bronchus or lung (principal); J18.9 Pneumonia, unspecified organism; N39.0 Urinary tract infection, site not specified; N17.9 Acute kidney failure, unspecified; I10 Essential (primary) hypertension; I48.91 Unspecified atrial fibrillation; E83.52 Hypercalcemia; Z66 Do not resuscitate; Z87.891 Personal history of nicotine dependence; Z82.49 Family history of ischemic heart disease and other diseases of the circulatory system
CPT/HCPCS: 36415; 36416; 71250; 76000; 80048; 80053; 80061; 80202; 82306; 82330; 82565; 82570; 82607; 82746; 83735; 83883; 83970; 84165; 84166; 84300; 85014; 85018; 85025; 85049; 86334; 86335; 87070; 87086; 87102; 87116; 87205; 87206; 87449; 87804; 87899; 93005; 93306; 94640; 94760; G0103; J1650; J1940; J2543; J3010; J3370; J3489; J3490; J7050

== ENCOUNTER 2019-03-05 00:36 | Inpatient (IN) | payer MEDICARE ==
[2019-03-05 01:12] LABS: Actual Bicarbonate (HCO3a) 24.3 mEq/L (22-28); Analyzer IN Cardio ER; Base Excess (BEa) -4.3 mEq/L (-2.0 to +3.0); Carboxyhemoglobin (COHb) 0.8 gm% (0.0-3.0); Hemoglobin (Hb) 13.5 g/dL (14.0-18.0); O2 Tension (PaO2) 99.3 mmHg (> 60.0); Potassium - ABG Lab 4.62 mmol/L (3.70-5.30)
[2019-03-05 01:14] LABS: Puncture Site RRA; pH, Arterial 7.23 (7.35-7.45)
[2019-03-05 01:28] LABS: #Basophils 0.1 thou/uL (0.0-0.2); #Eosinphils 0.4 thou/uL (0.0-0.7); #Lymphocytes 2.1 thou/uL (1.20-3.40); #Monocytes 1.2 thou/uL (0.11-0.59); %Basophils 0.5 % (0.0-1.0); %Eosinophils 2.3 % (0.0-10.0); %Lymphocytes 12.4 % (21.0-51.0); %Monocytes 7.1 % (0.0-10.0); %Neutrophils 77.8 % (42.0-75.0); Hemoglobin 13.6 g/dL (14.0-18.0); Mean Corpuscular HGB CONC 31.2 g/dL (32.0-36.0); Mean Platelet Volume 7.6 fL (7.4-10.4); Platelet Count 221 thou/uL (130-400); RBC Distribution Width 14.8 % (11.5-14.5); Red Blood Cell (RBC) Count 4.24 mill/uL (4.70-6.10); White Blood Cell (WBC) Count 16.7 thou/uL (4.8-10.8)
[2019-03-05] MEDS ORDERED: Cefepime 2 GM VIAL ONE ×2 (01:58→14:28)
[2019-03-05 04:21] LABS: Glucose 126 mg/dL (83-110)
[2019-03-05 04:22] LABS: Globulin 3.7 g/dL (2.4-3.5); Protein, Total 6.7 g/dL (5.8-8.1)
[2019-03-05 04:22] LABS: Lactic Acid 1.3 mmol/L (0.5-2.2)
[2019-03-05 04:23] LABS: Anion Gap 12 mmol/L (10-20); Carbon Dioxide 23 mmol/L (23-31)
[2019-03-05 04:24] LABS: Alkaline Phosphatase 255 U/L (40-110)
[2019-03-05 04:25] LABS: Calc. Creatinine Clearance 0 mL/min (70-130); Estimated GFR-MDRD 36
[2019-03-05 04:26] LABS: BUN (Urea Nitrogen) 26 mg/dL (8.4-25.7)
[2019-03-05 04:27] LABS: ALT (SGPT) 28 U/L (8-55); AST (SGOT) 53 U/L (5-34)
[2019-03-05 04:56] LABS: Bilirubin, Total 0.4 mg/dL (0.2-1.2); Calcium 8.4 mg/dL (7.8-10.44); Chloride 109 mmol/L (98-107); Potassium 5.1 mmol/L (3.5-5.1); Sodium 141 mmol/L (136-145)
--- NOTE | 2019-03-05 07:38 | RAD ---
Exam: Chest one view HISTORY:Difficulty breathing, x3 days. Worsening symptoms. Wheezing. Comparison: 02/24/2019 FINDINGS: Cardiac silhouette:Cardiomegaly Aorta: Unremarkable Pulmonary vessels: Prominent Costophrenic angles: Left-sided pleural effusion. LUNGS: Left lower lobe and left upper lobe consolidation. Degree of opacification in the left lung barron s increased. Pneumothorax: None. IMPRESSION: Multilobar pneumonia is suspected. Continued surveillance is recommended. Transcribed Date/Time: 03/05/2019 7:41 AM
[2019-03-05] MEDS ORDERED: Acetaminophen 325 MG TAB PO PRN (08:37)
--- NOTE | 2019-03-05 09:24 | CON ---
DATE OF CONSULTATION: REASON FOR CONSULTATION: Acute hypoxic respiratory failure. HISTORY OF PRESENT ILLNESS: Mr. Plaza is an 84-year-old male, who was recently in the hospital with a left upper lobe mass, which is squamous cell carcinoma by bronchoscopy. I called him Sunday and notified him of the results and he refused further intervention for that. He is confused and is unable to give history. According to the note chart from the ER, he was brought in with hypoxemia with O2 saturations in the 60s on room air. He was briefly on BiPAP that has since been stopped. He looks comfortable at this time. PAST MEDICAL HISTORY: 1. Squamous cell carcinoma of the left upper lobe. 2. Probable underlying chronic obstructive pulmonary disease. 3. Hypertension. 4. Osteoarthritis. PAST SURGICAL HISTORY: He has had a total knee replacement. FAMILY MEDICAL HISTORY: Remarkable for hypertension. SOCIAL HISTORY: Quit smoking about 40 years ago. Does not consume alcohol. REVIEW OF SYSTEMS: Cannot be obtained secondary to his confusion. PHYSICAL EXAMINATION: VITAL SIGNS: Temperature 97.5, pulse 103, blood pressure 146/82, and O2 saturation in the 90s on 2 L nasal cannula. GENERAL: He looks comfortable, in no distress. HEENT: Unremarkable. NECK: No adenopathy or JVD. LUNGS: Decreased air entry at left upper lobe, clear right. CARDIOVASCULAR: S1 and S2. Regular. ABDOMEN: Soft nontender. EXTREMITIES: No edema. IMAGING DATA: His chest x-ray shows left upper lobe collapse. LABORATORY DATA: White blood cell count 16.7, hematocrit 43.5, and platelet count 221. PH of 7.23, pCO2 of 60, and pO2 of 99. Sodium 141, potassium 5.1, chloride 109, CO2 of 23, BUN 26, creatinine 1.8, and glucose 126. ASSESSMENT: 1. Left upper lobe collapse from lung cancer. 2. Question of postobstructive pneumonia from the lung cancer. 3. Generalized failure to thrive. 4. Acute hypercapnic/hypoxic respiratory failure. PLAN: 1. I agree with steroids and antibiotics. 2. I would highly recommend Palliative Care involvement in this patient as I think the chances of recovery are quite poor. I will be happy to follow with you. Agree with DNR status. Job ID: [id number]
[2019-03-05] MEDS ORDERED: Vancomycin HCl 750 MG in Sodium Chloride 0.9% 250 ML 250 ML IVPB SCH (09:30)
--- NOTE | 2019-03-05 09:42 | HP ---
CHIEF COMPLAINT: Shortness of breath. HISTORY OF PRESENT ILLNESS: The patient is an 84-year-old male, who was just discharged from the hospital a couple of weeks ago when he was diagnosed with [id number] lung cancer. Apparently for the last three days, he noticed increased shortness of breath, and it got worse to the point that he called EMS last night. He was placed on BiPAP by EMS and transferred to emergency room for further evaluation. Decision was made about admission after he had initial workup done, and the chest x-ray showed possible multifocal pneumonia and a lung tumor. He denies any fever or chills. He denies any cough. PAST MEDICAL HISTORY: Positive for 1. Atrial fibrillation. 2. Hypertension. 3. Lung cancer. 4. Postobstructive pneumonia. 5. Hypercalcemia secondary to #1. 6. Chronic renal failure. PAST SURGICAL HISTORY: 1. Colon resection. 2. Prostate surgery. 3. Knee surgery. MEDICATIONS: Please refer to the list. 1. Cefpodoxime 200 mg twice a day. 2. Zolpidem 10 mg once a day. 3. [place] 5/325 mg every 4 hours p.r.n. as needed. 4. Lisinopril 20 mg once a day. 5. Hydroxyzine 25 mg twice a day. SOCIAL HISTORY: He lives at home with the family. Denies any alcohol intake. He is a former tobacco user. ALLERGIES: NONE. REVIEW OF SYSTEMS: All 14 systems were reviewed, and symptoms were negative except for those which are mentioned in the HPI. FAMILY HISTORY: Both parents of old age. PHYSICAL EXAMINATION: VITAL SIGNS: Blood pressure is 148/84, pulse is 74, respirations 23, temperature is 97.8, pain 0, O2 saturation 98% on BiPAP. HEENT: His head is atraumatic and normocephalic. Eyes are PERRLA. Sclerae are nonicteric. Conjunctivae palish. Oral mucosa is slightly dry. NECK: Supple. LUNGS: Bilateral rales and wheezes present, mild to moderate, similar bilaterally. HEART: S1, S2. Irregularly irregular. No S3. No S4. Distant. ABDOMEN: Soft, nontender, nondistended. Bowel sounds are present. No organomegaly. EXTREMITIES: 1+ peripheral edema, similar bilaterally on both lower extremities. NEUROLOGICAL: He follows my commands. He moves his all 4 extremities. There are no any motor or sensory deficits present. Cranial nerves are intact. LABORATORY DATA: Labs showed white count of 16.7, hemoglobin 13.6, hematocrit 43.5, platelet count is 221,000. ABGs showed pH of 7.23, pCO2 of 60.0, pO2 of 99.3. Sodium of 141, potassium 5.1, chloride 109, CO2 of 23, BUN 26, creatinine 1.81, glucose 126. Lactic acid 1.3, calcium 8.4, AST 53, ALT 28, alkaline phosphatase 255. BNP 293, albumin 3.0, globulin 3.7. EKG showed atrial fibrillation with prolonged QT, which is 418 and QTc is 505. A chest x-ray showed left-sided pleural effusion with cardiomegaly and left lower lobe and left upper lobe consolidation. IMPRESSION: 1. Respiratory failure, hypoxic and hypercapnic, secondary to pneumonia/lung cancer. 2. Pneumonia, multifocal. 3. Renal insufficiency, which is chronic. His baseline creatinine is ranging from 1.6 to 1.76. 4. Atrial fibrillation with controlled ventricular rate. Apparently, the patient was discharged on apixaban, but his primary care physician, Dr. Singh, stopped medications because the patient had some diarrhea. 5. [id number] lung cancer. Apparently, Dr. Ivey talked to him after he was discharged from the hospital, and he did not want to have anything done. Dr. Ivey is reconsulted, and the case was discussed with him. He is going to come and talk to him and encourage him to get some additional treatment for this cancer in his lungs. In the meantime, he is going to be treated with IV antibiotics and steroids. Also, we will get an oncologist involved, Dr. Mcelroy. 6. Hypertension. 7. History of colon resection. PLAN: Admission to [facility]. Do not attempt resuscitation status. I will stop his BiPAP and switch him to 4 L by nasal cannula. The case was discussed with Dr. Ivey, who is coming to see him. Dr. Mcelroy will be consulted for oncology evaluation. I will start him on Lovenox 1 mg/kg since he is not on any anticoagulant coagulation, and his atrial fibrillation is still present on electrocardiogram. We will continue his cefepime and vancomycin started in the emergency room. We will continue DuoNeb q.4 and Solu-Medrol IV push every 4 hours. We will obtain ABGs at 10 a.m. and see whether he needs to be back on his BiPAP or he can continue on nasal cannula 4 L. Job ID: [id number]
[2019-03-05] MEDS ORDERED: Famotidine 20 MG TAB ONE ×2 (10:50→20:57)
[2019-03-05] MEDS: Famotidine 20 MG TAB PO SCH ×2 (10:53→21:12)
[2019-03-05] MEDS: Enoxaparin Sodium 120 MG/0.8 ML SYRINGE SC SCH ×2 (10:56→21:12)
[2019-03-05 11:12] LABS: Actual Bicarbonate (HCO3a) 23.1 mEq/L (22-28); Analyzer IN Cardio ER; Base Excess (BEa) -4.1 mEq/L (-2.0 to +3.0); Calcium, Ionized 1.19 mmol/L (1.12-1.30); Carboxyhemoglobin (COHb) 0.4 gm% (0.0-3.0); Potassium - ABG Lab 5.11 mmol/L (3.70-5.30); pH, Arterial 7.27 (7.35-7.45)
[2019-03-05 11:15] LABS: Puncture Site L.R.
[2019-03-05] MEDS ORDERED: methylPREDNISolone Sod Succ 40 MG VIAL ONE ×2 (13:32→17:49)
[2019-03-05] MEDS: methylPREDNISolone Sod Succ/PF 125 MG/2 ML VIAL IVP SCH ×3 (13:35→23:06)
[2019-03-05] MEDS: Cefepime 2 GM in Sodium Chloride 0.9% 100 ML IVPB SCH (15:30)
[2019-03-05] MEDS ORDERED: Enoxaparin Sodium 60 MG/0.6 ML SYRINGE ONE (21:04)
[2019-03-05 22:59] VITALS: BMI 34.4
[2019-03-05] MEDS: Zolpidem Tartrate 5 MG TAB PO PRN (23:13)
[2019-03-06] MEDS: Cefepime 2 GM in Sodium Chloride 0.9% 100 ML IVPB SCH ×2 (02:38→14:23)
[2019-03-06 05:08] LABS: #Lymphocytes 0.8 thou/uL (1.20-3.40); #Monocytes 0.5 thou/uL (0.11-0.59); #Neutrophils 16.2 thou/uL (1.40-6.50); %Basophils 0.1 % (0.0-1.0); %Eosinophils 0.1 % (0.0-10.0); %Lymphocytes 4.3 % (21.0-51.0); %Neutrophils 92.5 % (42.0-75.0); Hemoglobin 11.7 g/dL (14.0-18.0); Mean Corpuscular HGB CONC 31.1 g/dL (32.0-36.0); Mean Corpuscular Hemoglobin 32.2 pg (27.0-31.0); Mean Platelet Volume 7.9 fL (7.4-10.4); Platelet Count 264 thou/uL (130-400); RBC Distribution Width 14.9 % (11.5-14.5); Red Blood Cell (RBC) Count 3.63 mill/uL (4.70-6.10); White Blood Cell (WBC) Count 17.6 thou/uL (4.8-10.8)
[2019-03-06 05:12] LABS: Anion Gap 12 mmol/L (10-20); BUN (Urea Nitrogen) 35 mg/dL (8.4-25.7); Calc. Creatinine Clearance 47 mL/min (70-130); Calcium 7.9 mg/dL (7.8-10.44); Carbon Dioxide 21 mmol/L (23-31); Chloride 113 mmol/L (98-107); Estimated GFR-MDRD 34; Glucose 131 mg/dL (83-110); Sodium 140 mmol/L (136-145)
[2019-03-06] MEDS: methylPREDNISolone Sod Succ/PF 125 MG/2 ML VIAL IVP SCH ×3 (05:21→17:34)
[2019-03-06] MEDS: Vancomycin HCl 1.75 GM in Sodium Chloride 0.9% 500 ML IVPB SCH (09:55)
[2019-03-06] MEDS: Famotidine 20 MG TAB PO SCH (09:55)
[2019-03-06] MEDS: Enoxaparin Sodium 120 MG/0.8 ML SYRINGE SC SCH ×2 (09:55→20:34)
--- NOTE | 2019-03-06 10:49 | PRG ---
DATE OF SERVICE: 03/06/2019 SUBJECTIVE: The patient feels better. He is very communicative. OBJECTIVE: VITAL SIGNS: Temperature 97.7, pulse rate 60, respirations are 17, O2 saturation 94% on 2 L, and blood pressure 140/59. HEENT: Unremarkable. NECK: No adenopathy or JVD. LUNGS: Fairly clear anteriorly. Cardiac: S1, S2. Regular. ABDOMEN: Soft. EXTREMITIES: No edema. ASSESSMENT: 1. Lung cancer. 2. Chronic obstructive pulmonary disease with exacerbation. 3. Question of postobstructive pneumonia from the cancer. PLAN: 1. Oncology has been consulted to see the patient. I am not sure whether or not the patient truly wants treatment. 2. Continues on steroids and antibiotics. 3. Prognosis is poor. Job ID: [id number]
[2019-03-06] MEDS ORDERED: Calcium Chloride 1 GM/10 ML Abboject SYRINGE IVP SCH (11:00)
--- NOTE | 2019-03-06 12:32 | PRG ---
DATE OF SERVICE: 03/06/2019 SUBJECTIVE: The patient is seen and examined at the bedside. He is getting breathing treatment as we speak. He does not want to get any chemotherapy treatments. He is okay for Hospice Services to take over his case as soon as he is discharged home. OBJECTIVE: VITAL SIGNS: Blood pressure is 142/68, pulse is 75, respiratory rate is 20, and O2 saturation is 100% on 2 L by nasal cannula. HEENT: His head is atraumatic and normocephalic. Eyes are PERRLA. Sclerae are nonicteric. Conjunctivae are palish. SKIN: Bruised in multiple areas. LUNGS: Breath sounds diminished at the left upper part of the lung and some crackles and rales at the left base and wheezing. HEART: S1, S2, somewhat distant. No S3. No S4. ABDOMEN: Obese, soft, nontender. EXTREMITIES: 1+ peripheral edema similar bilaterally. NEUROLOGICAL EXAMINATION: He moves his all 4 extremities. There are no any motor deficits. Cranial nerves are intact. LABORATORY DATA: Labs showed white count of 17.6, hemoglobin 11.7, hematocrit 37.6, platelet count 264,000. Sodium is 140, potassium 6.0, chloride 113, CO2 21, BUN 35, creatinine 1.89, calcium 7.9. Microbiology; 1/2 cultures is growing bacillus species, non-anthracis. IMPRESSION: 1. Respiratory failure, hypoxic and hypercapnic. 2. Pneumonia. 3. Lung cancer. 4. Chronic obstructive pulmonary disease. 5. Renal insufficiency. 6. Atrial fibrillation with controlled ventricular rate. 7. Hyperkalemia. 8. Hypertension. 9. History of colon resection. PLAN: The patient does not want to have any chemotherapy treatment. He would like to be transitioned to Hospice after he is discharged from the hospital. We will continue his cefepime and vancomycin. We will continue his DuoNebs and steroids. He seems to be doing okay on 4 L by nasal cannula. The consult with oncologists was canceled since the patient does not want to have any treatments because of his hyperkalemia. EKG will be done. He will be given calcium chloride and Kayexalate as soon as this is under control. Most likely, we will transition him to Hospice Care. We will get a Case Management consultation to arrange that for outpatient basis. Job ID: [id number]
[2019-03-06 14:43] LABS: Potassium 5.3 mmol/L (3.5-5.1)
[2019-03-06] MEDS: Zolpidem Tartrate 5 MG TAB PO PRN (20:34)
[2019-03-06] MEDS ORDERED: Temazepam 15 MG CAP PO SCH (21:00)
[2019-03-07] MEDS: methylPREDNISolone Sod Succ/PF 125 MG/2 ML VIAL IVP SCH ×3 (00:47→11:46)
[2019-03-07] MEDS: Cefepime 2 GM in Sodium Chloride 0.9% 100 ML IVPB SCH ×2 (02:42→13:45)
[2019-03-07] MEDS: Enoxaparin Sodium 120 MG/0.8 ML SYRINGE SC SCH (08:20)
[2019-03-07] MEDS ORDERED: Famotidine 20 MG TAB PO SCH (09:00)
--- NOTE | 2019-03-07 09:21 | PRG ---
DATE OF SERVICE: 03/07/2019 SUBJECTIVE: Mr. Plaza tells me he is going to hospice. He has decided not to have therapy for the cancer. OBJECTIVE: VITAL SIGNS: On exam, his temperature is 97.4, pulse 79, respirations 20, O2 saturation 96% on 1 L, blood pressure 160/79. HEENT: Unremarkable. NECK: No adenopathy or JVD. LUNGS: Clear anteriorly. CARDIAC: S1, S2. Regular. ABDOMEN: Soft. EXTREMITIES: No edema. ASSESSMENT: 1. Left upper lobe squamous cell carcinoma. 2. Possible postobstructive pneumonia. 3. Failure to thrive. PLAN: From my standpoint, he is good to go home on hospice. If antibiotics are needed, then I would send him home on Omnicef for a few days. No further Pulmonary recommendations. We will sign off. Job ID: [id number]
[2019-03-07] MEDS: Vancomycin HCl 1.75 GM in Sodium Chloride 0.9% 500 ML IVPB SCH (10:27)
[2019-03-07 11:49] VITALS: BP 142/99; TEMP 97.7
[2019-03-07] MEDS ORDERED: HYDROcodone/Acetaminophen 5/325 mg Tablet PO PRN (12:41)
--- NOTE | 2019-03-07 12:57 | DIS ---
DATE OF ADMISSION: 03/05/2019 DATE OF DISCHARGE: 03/07/2019 FINAL DIAGNOSES: 1. Respiratory failure, hypoxic and hypercapnic, improved. 2. Pneumonia. 3. Lung cancer. 4. Chronic obstructive pulmonary disease. 5. Renal insufficiency. 6. Atrial fibrillation with controlled ventricular rate. 7. Hyperkalemia. 8. Hypertension. 9. History of colon resection. DISPUTE SPECIALIST: Dr. Ivey, Pulmonary Service. HOSPITAL COURSE: The patient was an 84-year-old male, who was recently diagnosed with lung cancer, who presented to the emergency room with a history of shortness of breath for the last 3 days prior to this admission. He was transported by EMS to the hospital and placed on BiPAP. Chest x-ray showed possible multifocal pneumonia and lung tumor. He denied any fever or chills or any cough. At the time of ER evaluation, his white count was up to 16.7, hemoglobin 13.6, hematocrit 43.5, platelet count is 221,000. ABGs showed pH of 7.23, pCO2 of 60, PO2 is 99.3. His electrolytes were within normal limits. BUN was 26, creatinine 1.81, glucose 126. BNP 293. EKG showed atrial fibrillation with prolonged QT. Chest x-ray showed left-sided pleural effusion with cardiomegaly and left lower lobe and left upper lobe consolidation. The patient was placed on full dose of antibiotics broad-spectrum, also on full dose of Lovenox 1 mg/kg. He was continued on DuoNeb which was started in the emergency room and he was placed on Solu-Medrol. He wished to be do not attempt resuscitation. Plate Corrector was called. Dr. Ivey saw the patient and he recommended continuation of his steroids and antibiotics and Palliative Care involvement. He agreed with do not attempt resuscitation status. Subsequently, the patient decided not to go for any chemotherapy or any other treatments. So, Oncology consultation was canceled, which was originally initiated and the patient was referred to Hospice Services. The patient was seen by Hospice Services and he is willing to go home on hospice. We explained to him that this is not going to give him any significant treatment, but he is okay with that and he is discharged on a regular diet. ACTIVITIES: As tolerated. MEDICATIONS: At time of discharge 1. Levofloxacin 500 mg once a day. 2. Atrovent 2 puffs four times a day. 3. Albuterol inhalation 3 times a day. 4. Tylenol 650 q.4 hours p.r.n. as needed. 5. Prednisone tapering dose. 6. Hydrocodone p.r.n. as needed every 4 hours. 7. Zolpidem, Daniel, 10 mg at bedtime. Job ID: [id number]
--- NOTE | 2019-03-08 05:46 | PQF ---
[employer] Worker Crystal Reports Winform ViewerNOSUMAN ANDRADE IGOR HOFFMAN MD [id number] [facility]-[id number] CLINICAL DOCUMENTATION CLARIFICATION FORM: POST DISCHARGE Addendum to original discharge summary date: ____ Late entry note date: __ DATE: 03/08/2019 ATTN: IGOR HOFFMAN MD Please exercise your independent, professional judgment in responding to the clarification form. Clinical indicators are provided on the bottom of this form for your review Please check appropriate box(es): [ ] Sepsis [ ] Severe sepsis [ ] Septic Shock [ ] Localized infection without sepsis [ ] Other diagnosis [ x ] Unable to determine In addition, please specify: Present on Admission (POA): [ ] Yes [ ] No [ ] Unable to determine For continuity of documentation, please document condition throughout progress notes and discharge summary. Thank You. CLINICAL INDICATORS - SIGNS / SYMPTOMS / LABS Elevated WBC 16.7 on 03/05 and 17.6 on 03/06 - Documented in Laboratory Respiration Rate 32 on 03/05 and 21 on 03/06 - Documented in Vital Signs Acute respiratory failure with hypoxia/hypercapnia - Documented in Consult note on 03/05 by Ovidio Ivey BP 140/59 on 03/06 - Documented in Vital Signs Pneumonia - Documented in DS on 03/05 by IGOR HOFFMAN MD RISK FACTORS HTN Left lung collapse from lung cancer - Documented in Consult note on 03/05 by Ovidio Ivey COPD with exacerbation - Documented in PNs on 03/06 by Uche Nolan TREATMENTS: We will continue his cefepime and vancomycin - Documented in h&P on 03/05 by IGOR HOFFMAN MD Cefepime IVPB and Vancomycin IVPB - Medication report [employer] Worker Crystal Reports Winform Viewer(This form is maintained as a part of the permanent medical record) 2014 [email or web address] All Rights Reserved Carlee [email or web address] [not provided] MTDD
--- NOTE | 2019-03-12 17:38 | EKG ---
Test Reason : Blood Pressure : / mmHG Vent. Rate : 082 BPM Atrial Rate : 073 BPM P-R Int : 000 ms QRS Dur : 102 ms QT Int : 396 ms P-R-T Axes : 000 -11 074 degrees QTc Int : 462 ms Atrial fibrillation Nonspecific T wave abnormality Prolonged QT Abnormal ECG Confirmed by DR. Shahnaz MOLINA ([id number]) on 03/12/2019 5:38:14 PM Referred By: DALTON Confirmed By:DR. Shahnaz MOLINA
== END 2019-03-07 14:40 | disposition hospice, home (50) | DRG 193 ==
LOC: ERS 00:36 → ERHOLD 05:18 → 2NO 22:48
PROVIDERS: ADMIT Hospitalist; ATTEND Hospitalist
DX: J18.9 Pneumonia, unspecified organism (principal); J96.01 Acute respiratory failure with hypoxia; J96.02 Acute respiratory failure with hypercapnia; C34.12 Malignant neoplasm of upper lobe, left bronchus or lung; J90 Pleural effusion, not elsewhere classified; J44.0 Chronic obstructive pulmonary disease with (acute) lower respiratory infection; J44.1 Chronic obstructive pulmonary disease with (acute) exacerbation; Z66 Do not resuscitate; I48.91 Unspecified atrial fibrillation; I12.9 Hypertensive chronic kidney disease with stage 1 through stage 4 chronic kidney disease, or unspecified chronic kidney disease; N18.9 Chronic kidney disease, unspecified; Z90.49 Acquired absence of other specified parts of digestive tract; Z87.891 Personal history of nicotine dependence; Z79.899 Other long term (current) drug therapy; M19.91 Primary osteoarthritis, unspecified site; R62.7 Adult failure to thrive; Z68.34 Body mass index [BMI] 34.0-34.9, adult; J44.9 Chronic obstructive pulmonary disease, unspecified; E78.5 Hyperlipidemia, unspecified
CPT/HCPCS: 36415; 71045; 80048; 80053; 82805; 83605; 83880; 84484; 85025; 87040; 93005; 93010; 94640; 94660; 96365; 96366; 96367; J0692; J1650; J1956; J2920; J2930; J3370; J3490; J7050; J7620